=== PATIENT | female | born 1970 | race Caucasian/White ===

== ENCOUNTER 2016-10-02 14:43 | Emergency (ER) | payer OTHER ==
[~2016-10-02] VITALS: Ht 157.5 cm; Wt 68.2 kg
[2016-10-02 14:48] VITALS: TEMP 97.5
[2016-10-02] MEDS ORDERED: HUMIRA40 MG/0.8 SQ (15:07)
[2016-10-02] MEDS ORDERED: CALCIUM 600 PLU1 TAB PO (15:07)
[2016-10-02] MEDS ORDERED: FYAVOLV 1 MG-51 EACH PO (15:08)
[2016-10-02] MEDS ORDERED: FOLIC ACID0.4 MG PO (15:09)
[2016-10-02] MEDS ORDERED: FLOVENT DI50 MCG/Act IH (15:09)
[2016-10-02] MEDS ORDERED: METHOTREXA2.5 MG/TAB PO (15:10)
[2016-10-02] MEDS ORDERED: ADVIL200 MG PO (15:10)
[2016-10-02] MEDS ORDERED: MULTIPLE VITAMI1 CAP PO (15:11)
[2016-10-02] MEDS ORDERED: IMITREX100 MG PO (15:11)
[2016-10-02] MEDS ORDERED: NORCO 325 MG-51 TAB PO (15:20)
[2016-10-02 17:32] VITALS: BP 128/72; PULSE 67
== END 2016-10-02 17:50 | disposition home or self-care (01) ==
LOC: COL.ER 14:43
DX: S82.851A Displaced trimalleolar fracture of right lower leg, initial encounter for closed fracture (principal); W19.XXXA Unspecified fall, initial encounter; Y93.01 Activity, walking, marching and hiking
CPT/HCPCS: J2704; J3010; J7030